=== PATIENT | female | born 1985 | race Caucasian/White ===

== ENCOUNTER → 2017-09-25 | Outpatient (CLI) | payer OTHER | LOC: COL.RAD 09-18 11:30 | DX: R10.9 Unspecified abdominal pain (principal) | CPT/HCPCS: Q9967 ==

== ENCOUNTER 2017-12-29 01:46 | Emergency (ER) | payer OTHER ==
[~2017-12-29] VITALS: Ht 162.6 cm; Wt 95.5 kg
[2017-12-29 01:50] VITALS: BP 147/82; PULSE 91; TEMP 97.9
[2017-12-29] MEDS ORDERED: FLEXERIL 1010 MG/TAB PO (02:36)
== END 2017-12-29 03:03 | disposition home or self-care (01) ==
LOC: COL.ER 01:46
DX: M62.830 Muscle spasm of back (principal); F32.9 Major depressive disorder, single episode, unspecified; J45.909 Unspecified asthma, uncomplicated; F43.10 Post-traumatic stress disorder, unspecified
CPT/HCPCS: J1885; J2360

== ENCOUNTER 2018-05-01 21:58 | Emergency (ER) | payer OTHER ==
[~2018-05-01] VITALS: Ht 162.6 cm; Wt 97.7 kg
[~2018-05-01 21:58] MED LIST: FLEXERIL 1010 MG/TAB PO
[2018-05-01 22:03] VITALS: TEMP 99.4
[2018-05-01] MEDS ORDERED: DEPO-PROVE150 MG/1 M IM ×2 (22:08→23:12)
[2018-05-01] MEDS ORDERED: BACTRIM DS 8001 TAB PO (23:14)
[2018-05-01 23:20] LABS: BASO % 0.1 % (0.0-2.0); EOS # 0.3 (0.0-0.7); GRAN # 11.4 (1.4-6.5); GRAN % 83.1 % (42.2-75.2); HEMATOCRIT 36.6 % (37.0-47.0); HEMOGLOBIN 12.6 g/dl (12.5-16.0); LYMPH # 1.3 (1.2-3.4); LYMPH % 9.3 % (20.0-51.0); MEAN CELL VOLUME 92 fl (80.0-100.0); MEAN CORPUSCULAR HEMOGLOBIN 32 pg (27.0-31.0); MEAN CORPUSCULAR HGB CONC 34 g/dl (33.0-37.0); MEAN PLATELET VOLUME 9.6 fl (7.4-10.4); MONO # 0.7 (0.1-0.6); MONO % 5.1 % (1.7-9.3); PLATELET COUNT 211 K/mm3 (130-400); RED BLOOD COUNT 3.99 M/mm3 (4.10-5.30); REDCELL DISTRIBUTION WIDTH-CV 12.1 % (11.5-14.5)
[2018-05-01] MEDS ORDERED: DOXYCYCLINE 10100 MG PO (23:22)
[2018-05-01 23:32] LABS: ALBUMIN 4.1 gm/dL (3.5-5.0); BILIRUBIN,TOTAL 0.4 mg/dL (0.0-1.0); C-REACTIVE PROTEIN 0.7 mg/dL (0.0-0.9); CALCIUM 9.1 mg/dL (8.4-10.2); CREATININE, serum 0.84 mg/dL (0.52-1.25); TOTAL PROTEIN 7.3 gm/dL (6.4-8.2)
[2018-05-02] MEDS ORDERED: DOXYCYCLINE HY100 MG PO (00:24)
[2018-05-02 01:05] VITALS: BP 117/73; PULSE 99
== END 2018-05-02 01:05 | disposition home or self-care (01) ==
LOC: COL.ER 21:58
PROVIDERS: Emergency Medicine
DX: S80.862A Insect bite (nonvenomous), left lower leg, initial encounter (principal); L03.116 Cellulitis of left lower limb; T36.8X5A Adverse effect of other systemic antibiotics, initial encounter; J45.909 Unspecified asthma, uncomplicated; W57.XXXA Bitten or stung by nonvenomous insect and other nonvenomous arthropods, initial encounter
CPT/HCPCS: J1885; J7030

== ENCOUNTER 2018-06-05 12:31 | Emergency (ER) | payer SELFPAY ==
[~2018-06-05] VITALS: Ht 162.6 cm; Wt 97.7 kg
[~2018-06-05 12:31] MED LIST changes: +BACTRIM DS 8001 TAB PO; +DEPO-PROVE150 MG/1 M IM; +DOXYCYCLINE 10100 MG PO; +DOXYCYCLINE HY100 MG PO
[2018-06-05 12:42] VITALS: BP 130/79; TEMP 99.3
[2018-06-05 13:32] LABS: COLLECTION METHOD CLEAN CATCH
[2018-06-05 13:39] LABS: PH 6 (5-8); SQUAMOUS EPITHELIAL 0-2 /hpf; URINE APPEARANCE Clear; URINE BACTERIA None Seen /hpf; URINE BILIRUBIN Negative (NEGATIVE); URINE BLOOD 1+ (NEGATIVE); URINE COLOR Straw; URINE GLUCOSE Negative (NEGATIVE); URINE KETONE Negative (NEGATIVE); URINE LEUKOCYTE ESTERASE Negative (NEGATIVE); URINE NITRATE Negative (NEGATIVE); URINE PROTEIN(semi-quant) Negative (NEGATIVE); URINE RBC 0-2 /hpf; URINE UROBILINOGEN Negative (NEGATIVE)
[2018-06-05 13:49] LABS: BASO # 0.1 (0.0-0.2); BASO % 0.6 % (0.0-2.0); EOS # 0.4 (0.0-0.7); GRAN # 6.2 (1.4-6.5); GRAN % 66.7 % (42.2-75.2); HEMATOCRIT 37.4 % (37.0-47.0); HEMOGLOBIN 12.7 g/dl (12.5-16.0); LYMPH # 2.1 (1.2-3.4); LYMPH % 22.6 % (20.0-51.0); MEAN CELL VOLUME 92 fl (80.0-100.0); MEAN CORPUSCULAR HEMOGLOBIN 31 pg (27.0-31.0); MEAN CORPUSCULAR HGB CONC 34 g/dl (33.0-37.0); MEAN PLATELET VOLUME 9.6 fl (7.4-10.4); MONO # 0.5 (0.1-0.6); MONO % 5.7 % (1.7-9.3); PLATELET COUNT 218 K/mm3 (130-400); RED BLOOD COUNT 4.08 M/mm3 (4.10-5.30); REDCELL DISTRIBUTION WIDTH-CV 12.1 % (11.5-14.5)
[2018-06-05 13:59] LABS: ALBUMIN 4.3 gm/dL (3.5-5.0); BILIRUBIN,TOTAL 0.5 mg/dL (0.0-1.0); C-REACTIVE PROTEIN 0.8 mg/dL (0.0-0.9); CALCIUM 9.1 mg/dL (8.4-10.2); CREATININE, serum 0.75 mg/dL (0.52-1.25); POTASSIUM 3.9 mmol/L (3.4-5.0); TOTAL PROTEIN 7.8 gm/dL (6.4-8.2)
[2018-06-05] MEDS ORDERED: FLEXERIL 1010 MG/TAB PO (15:18)
[2018-06-05 15:48] VITALS: PULSE 71
== END 2018-06-05 15:48 | disposition home or self-care (01) ==
LOC: COL.ER 12:31
PROVIDERS: Emergency Medicine
DX: R10.9 Unspecified abdominal pain (principal); N93.9 Abnormal uterine and vaginal bleeding, unspecified
CPT/HCPCS: J1885; J7030

== ENCOUNTER 2018-11-24 14:13 | Emergency (ER) | payer BC ==
[~2018-11-24] VITALS: Ht 162.6 cm; Wt 97.7 kg
[2018-11-24 16:19] VITALS: BP 118/77; PULSE 98; TEMP 99.2
== END 2018-11-24 16:20 | disposition home or self-care (01) ==
LOC: COL.ER 14:13
DX: J10.1 Influenza due to other identified influenza virus with other respiratory manifestations (principal); F32.9 Major depressive disorder, single episode, unspecified; F41.9 Anxiety disorder, unspecified; F43.10 Post-traumatic stress disorder, unspecified; Z87.891 Personal history of nicotine dependence
CPT/HCPCS: J1885; J2405; J7030

== ENCOUNTER 2018-11-28 10:16 | Emergency (ER) | payer BC ==
[~2018-11-28] VITALS: Ht 162.6 cm; Wt 100.0 kg
[2018-11-28 10:23] VITALS: BP 109/69
[2018-11-28 11:33] VITALS: PULSE 70; TEMP 97.6
== END 2018-11-28 11:33 | disposition home or self-care (01) ==
LOC: COL.ER 10:16
DX: J11.89 Influenza due to unidentified influenza virus with other manifestations (principal); F32.9 Major depressive disorder, single episode, unspecified; F41.9 Anxiety disorder, unspecified; F43.10 Post-traumatic stress disorder, unspecified; J45.909 Unspecified asthma, uncomplicated; Z87.891 Personal history of nicotine dependence

== ENCOUNTER 2019-06-13 23:29 | Emergency (ER) | payer BC ==
[~2019-06-13] VITALS: Ht 162.6 cm; Wt 97.7 kg
[2019-06-13 23:33] VITALS: TEMP 97.9
[2019-06-13 23:46] LABS: COLLECTION METHOD CLEAN CATCH
[2019-06-13 23:54] LABS: PH 8 (5-8); SQUAMOUS EPITHELIAL 0-2 /hpf; URINE APPEARANCE Hazy; URINE BACTERIA None Seen /hpf; URINE BILIRUBIN Negative (NEGATIVE); URINE BLOOD 2+ (NEGATIVE); URINE COLOR Yellow; URINE GLUCOSE Negative (NEGATIVE); URINE KETONE Negative (NEGATIVE); URINE LEUKOCYTE ESTERASE 2+ (NEGATIVE); URINE NITRATE Negative (NEGATIVE); URINE PROTEIN(semi-quant) 1+ (NEGATIVE); URINE RBC >50 /hpf; URINE UROBILINOGEN Negative (NEGATIVE)
[2019-06-14 00:25] LABS: BASO # 0.1 (0.0-0.2); BASO % 0.7 % (0.0-2.0); EOS # 0.4 (0.0-0.7); EOS % 3.5 % (0-4.0); GRAN # 5.7 (1.4-6.5); GRAN % 55.9 % (42.2-75.2); HEMATOCRIT 36.9 % (37.0-47.0); HEMOGLOBIN 12.4 g/dl (12.5-16.0); LYMPH # 3.3 (1.2-3.4); LYMPH % 32.1 % (20.0-51.0); MEAN CELL VOLUME 94 fl (80.0-100.0); MEAN CORPUSCULAR HEMOGLOBIN 32 pg (27.0-31.0); MEAN CORPUSCULAR HGB CONC 34 g/dl (33.0-37.0); MONO # 0.8 (0.1-0.6); MONO % 7.5 % (1.7-9.3); PLATELET COUNT 242 K/mm3 (130-400); RED BLOOD COUNT 3.93 M/mm3 (4.10-5.30); REDCELL DISTRIBUTION WIDTH-CV 12.1 % (11.5-14.5)
[2019-06-14 00:40] LABS: ALBUMIN 4.1 gm/dL (3.5-5.0); BILIRUBIN,TOTAL 0.4 mg/dL (0.0-1.0); CALCIUM 8.9 mg/dL (8.4-10.2); CREATININE, serum 0.57 (0.52-1.25); TOTAL PROTEIN 7.5 gm/dL (6.4-8.2)
[2019-06-14] MEDS ORDERED: LEVAQUIN 5500 MG/TA1 PO (00:49)
[2019-06-14] MEDS ORDERED: ZOFRAN ODT4 MG PO (00:50)
[2019-06-14 01:42] VITALS: BP 120/76; PULSE 77
== END 2019-06-14 01:42 | disposition home or self-care (01) ==
LOC: COL.ER 23:29
PROVIDERS: Emergency Medicine
DX: N12 Tubulo-interstitial nephritis, not specified as acute or chronic (principal); J45.909 Unspecified asthma, uncomplicated; F32.9 Major depressive disorder, single episode, unspecified; F43.10 Post-traumatic stress disorder, unspecified; Z87.891 Personal history of nicotine dependence
CPT/HCPCS: J2270; J2405; J7030

== ENCOUNTER → 2020-09-01 | Outpatient (CLI) | payer BC ==
[~2020-09-01] MED LIST changes: +LEVAQUIN 5500 MG/TA1 PO; +ZOFRAN ODT4 MG PO
== END ==
LOC: ZCOL.LAB 16:32
DX: U07.1 COVID-19 (principal)

== ENCOUNTER 2023-09-28 23:15 | Emergency (ER) | payer SELFPAY ==
[~2023-09-28] VITALS: Ht 165.1 cm; Wt 94.5 kg
[2023-09-29] MEDS ORDERED: ZOFRAN ODT4 MG PO (01:32)
[2023-09-29 01:40] VITALS: BP 116/76; PULSE 70; TEMP 96.9
== END 2023-09-29 01:40 | disposition home or self-care (01) ==
LOC: COL.ER 23:15
DX: R51.9 Headache, unspecified (principal); R11.0 Nausea; Z86.69 Personal history of other diseases of the nervous system and sense organs; Z87.891 Personal history of nicotine dependence
CPT/HCPCS: J1790; J1885